=== PATIENT | male | born 1990 | race Caucasian/White ===

== ENCOUNTER → 2019-05-10 | Outpatient (CLI) | payer MEDICAID ==
--- NOTE | 2019-05-10 15:27 | Diagnostic Imaging Report ---
INDICATION: Right foot pain. TIME OF EXAM: 03:03 p.m. FINDINGS: Three views of the right foot were obtained. Metatarsals are intact. Phalanges are intact. Mid foot and hind foot are unremarkable. No fractures are seen. IMPRESSION: No acute bony abnormality is detected. Dictated by: Dictated on workstation # [id number]
== END ==
LOC: RAD FS 14:46
PROVIDERS: ATTEND Nurse Practitioner Family
DX: S90.31XA Contusion of right foot, initial encounter (principal)
CPT/HCPCS: 73630